=== PATIENT | male | born 1995 | race African-American/Black ===

== ENCOUNTER 2023-12-09 19:07 | Emergency (ER) | payer OTHER ==
[~2023-12-09] VITALS: Ht 175.3 cm; Wt 65.8 kg
[2023-12-09] MEDS ORDERED: Fluorescein Sod 1MG Opth Strips RIGHTEYE ONE (20:55)
[2023-12-09] MEDS ORDERED: Tetracaine HCl/Pf 0.5% Opth Soln 4 ml RIGHTEYE ONE (20:55)
[2023-12-09] MEDS ORDERED: Erythromycin 0.5% Opth Oint 1 gm RIGHTEYE ONE (22:00)
== END 2023-12-10 02:31 | disposition home or self-care (01) ==
LOC: ER 19:07
DX: H57.11 Ocular pain, right eye (principal)
CPT/HCPCS: 99283; A9270